=== PATIENT | male | born 1950 | race Caucasian/White ===

== ENCOUNTER 2019-01-14 22:22 | Emergency (ER) | payer OTHER ==
--- OUTSIDE RECORDS SUMMARY | 2019-01-14 22:25 | XMS REPORT | Continuity of Care Document ---
:1950 Author Organization Interface Problems Problem Status Onset Classification Date Comments Source Date Reported Abnormal EKG Active Problem 07/09/2017 Comp Heart Care Syncope, Active Problem 07/09/2017 Comp unspecified Heart syncope type Care Benign essential Active Problem 07/09/2017 Comp hypertension [facility] Medications Medication Details Route Status Patient Ordering Order Source Instructions Provider Date Humalog 0 subcutaneously Active 100 units/mL [place] KwikPen subcutaneously [facility] Fish Oil 1 cap(s) orally Active 1200 mg orally 3 [place] Comp times a day [facility] Super Beta 1 tab(s) orally Active orally once a [place] Comp Prostate day [facility] Centrum 1 tab(s) orally Active Therapeutic [place] Comp Silver Multiple Heart Vitamins with Care Minerals orally once a day ramipril 1 cap(s) orally Active 10 mg orally [place] Comp once a day [facility] Care Humalin not NA Active 70/30 daily [place] Comp defined [facility] Vitamin D3 1 tab(s) orally Active 2000 intl units [place] Comp orally once a Heart day Care Vitamin B12 1 tab(s) sublingually Active 2500 mcg [place] Comp sublingually Heart once a day Care aspirin 1 tab(s) orally Active 81 mg orally [place] Comp once a day Heart Care gabapentin 1 cap(s) orally Active 300 mg orally 3 [place] Comp times a day [facility] Care finasteride 1 tab(s) orally Active 5 mg orally once [place] Comp a day [facility] Allergies, Adverse Reactions, Alerts Substance Category Reaction Severity Reaction Status Date Comments Source type Reported penicillin Adverse Info Not Adverse Active Comp Reaction Available Reaction 7 [facility] Flomax Adverse dizziness Adverse Active Comp Reaction Reaction 7 [facility] Immunizations Immunization Date Given Site Status Last Updated Comments Source Results Order Results Value Reference Date Interpretation Comments Source Name Range Vital Signs Vital Sign Value Date Comments Source Diastolic (mm Hg) 70 05/10/2017 Comp [facility] Systolic (mm Hg) 150 05/10/2017 Comp [facility] Weight 210.8 05/10/2017 Comp [facility] Height 71 05/10/2017 Comp [facility] Encounters Location Location Encounter Encounter Reason Attending ADM DC Status Source Details Type Number For Provider Date Date Visit Procedures Procedure Code Date Perfomer Comments Source
--- OUTSIDE RECORDS SUMMARY | 2019-01-14 22:25 | XMS REPORT | Clinical Summary ---
:1950 Author Organization [facility] Address [address] [place] [address] Care Team Providers Name Role Phone Asked, No Pcp Primary Care Provider Unavailable Allergies Active Allergy Reactions Severity Noted Date Comments Penicillins Rash Low 04/23/2009 Tamsulosin Hcl 10/14/2015 Dizziness Medications Medication Sig Dispensed Refills Start Date End Date Status finasteride (PROSCAR) 5 0 12/14/2016 Active mg tablet gabapentin (NEURONTIN) 0 01/27/2017 Active 300 mg capsule ramipril (ALTACE) 10 MG 0 02/24/2017 Active capsule HUMULIN N KWIKPEN 100 0 01/06/2017 Active unit/mL (3 mL) HUMALOG KWIKPEN 100 0 02/08/2017 Active unit/mL injection pen cyanocobalamin 1000 MCG Take by mouth. 0 Active tablet omega-3 fatty acids 1,250 Take by mouth. 0 Active mg capsule cholecalciferol, vitamin Take by mouth. 0 Active D3, (VITAMIN D3) 2,000 unit tablet multivitamin with iron Take by mouth. 0 Active tablet Active Problems No known active problems Family History Relation Name Status Comments Father Alive Mother Social History Tobacco Use Types Packs/Day Years Used Date Never Smoker Alcohol Use Drinks/Week oz/Week Comments No Sex Assigned at Date Recorded Not on file Job Start Date Occupation Industry Not on file Not on file Not on file Travel History Travel Start Travel End No recent travel history available. Last Filed Vital Signs Not on file Plan of Treatment Health Maintenance Due Date Last Done Comments COLON CANCER SCREENING 1998 SHINGLES VACCINES (#1) 1998 INFLUENZA VACCINE 05/10/2019 PNEUMOCOCCAL POLYSACCHARIDE VACCINE Completed 10/14/2015, 05/06/2011 AGE 65 AND OVER 65+ PNEUMOCOCCAL VACCINE Completed 09/20/2016, 10/14/2015, 05/06/2011 Results Not on fileafter 01/13/2018 Insurance Payer Benefit Plan / Group Subscriber ID Type Phone Address AETNA A[facility]NA [facility] IN[facility]MNITY xxxxxxxxxx Indemnity MEDICARE MEDICARE PART A AND B xxxxxxxxxx Medicare [place], [place] Advance Directives Patient has advance care planning documents on file. For more information, please contact:Jeffrey Mahan[address] [place] [address]
--- OUTSIDE RECORDS SUMMARY | 2019-01-14 22:25 | XMS REPORT ---
:1950 Author Organization eClinical[employer] Care Team Providers Name Role Phone Aurora Jerome Provider Role Unavailable Allergies No Known Allergies Problems Problem Type Condition Code Onset Dates Condition Status Problem Abnormal EKG R94.31 Active Problem Syncope, unspecified syncope type R55 Active Problem Benign essential hypertension I10 Active Medications No Known Medications Results No Known Results Summary Purpose eClinicalWorks Submission
--- OUTSIDE RECORDS SUMMARY | 2019-01-14 22:25 | XMS REPORT ---
:1950 Author Organization [employer] Care Team Providers Name Role Phone Aurora Jerome Provider Role Unavailable Allergies No Known Allergies Problems Problem Type Condition Code Onset Dates Condition Status Problem Benign essential hypertension I10 Active Medications No Known Medications Results No Known Results Summary Purpose eClinicalWorks Submission
--- OUTSIDE RECORDS SUMMARY | 2019-01-14 22:25 | XMS REPORT ---
:1950 Author Organization eClinicalWorks Care Team Providers Name Role Phone Aurora Jerome Provider Role Unavailable Allergies, Adverse Reactions, Alerts Substance Reaction Event Type penicillin Info Not Available Drug Allergy Flomax dizziness Drug Allergy Problems Problem Type Condition Code Onset Dates Condition Status Problem Abnormal EKG R94.31 Active Problem Syncope, unspecified syncope type R55 Active Problem Benign essential hypertension I10 Active Assessment Syncope, unspecified syncope type R55 Active Assessment Abnormal EKG R94.31 Active Assessment Benign essential hypertension I10 Active Medications Medication Code Code Instructions Start End Status Dosage System Date Date Humalog KwikPen [facility] 63179456296 100 units/mL Active 0 subcutaneously Fish Oil [facility] 24335136484 1200 mg orally 3 Active 1 cap(s) times a day Super Beta NDC 0 orally once a Active 1 tab(s) Prostate day Centrum Silver [facility] 32142162159 Therapeutic Active 1 tab(s) Multiple Vitamins with Minerals orally once a day ramipril [facility] 73778416392 10 mg orally once Active 1 cap(s) a day Humalin ND 0 70/30 daily Active not defined Vitamin D3 [facility] 02031107025 2000 intl units Active 1 tab(s) orally once a day Vitamin B12 [facility] 18234954810 2500 mcg Active 1 tab(s) sublingually once a day aspirin [facility] 22152192406 81 mg orally once Active 1 tab(s) a day gabapentin [facility] 94310726672 300 mg orally 3 Active 1 cap(s) times a day finasteride [facility] 10754372138 5 mg orally once Active 1 tab(s) a day Vital Signs Date/Time: May 10, 2017 Blood Pressure Diastolic 70 mm Hg Blood Pressure Systolic 150 mm Hg Weight 210.8 lbs BMI 29.40 Index Height 71 in Results No Known Results Summary Purpose eClinicalWorks Submission
[2019-01-15] MEDS ORDERED: LIDOCAINE 1% MPF 5 ML VIAL ONE (00:37)
--- NOTE | 2019-01-15 00:43 | EDPHYS ---
Physician Documentation [facility] Name: Jean Estevez Age: 68 yrs Sex: Male : 1950 Arrival Date: 01/14/2019 Time: 22:28 Bed 13 Private MD: ED Physician Parish Nath HPI: 01/15 00:35 This 68 yrs old Male presents to ER via Ambulatory with complaints of Milind in gs ear. 00:35 The patient presents with a foreign body sensation, presumably from an insect. The gs complaints affect the right ear. Onset: The symptoms/episode began/occurred today. Associated signs and symptoms: Pertinent negatives: fever, vertigo, vomiting. Severity of symptoms: At their worst the symptoms were moderate in the emergency department the symptoms are unchanged. Historical: - Allergies: 01/14 22:50 Penicillins; jb4 - Home Meds: 22:50 10mg b/p medication [Active]; insulin [Active]; gabapentin oral oral [Active]; jb4 - PMHx: 22:50 Diabetes - IDDM; Hypertension; neuropathy; jb4 - PSHx: 22:50 None; jb4 - Immunization history:: Adult Immunizations up to date. - Social history:: Smoking status: Patient/guardian denies using tobacco, Patient/guardian denies using alcohol. - Ebola Screening: : No symptoms or risks identified at this time. ROS: 01/15 00:35 All other systems are negative. gs Exam: 00:35 Constitutional: The patient appears alert, awake. gs 00:35 ENT: Ear canal(s): foreign body, an insect. Vital Signs: 01/14 22:50 BP 152 / 64; Pulse 83; Resp 16; Temp 98.2(O); Pulse Ox 95% on R/A; Weight 90.72 kg (R); jb4 Height 5 ft. 11 in. (180.34 cm); Pain 0/10; 01/15 00:45 BP 149 / 69; Pulse 82; Resp 16; Pulse Ox 98% on R/A; jb4 01/14 22:50 Body Mass Index 27.89 (90.72 kg, 180.34 cm) jb4 Procedures: 00:35 Foreign Body Removal: an insect, unable to retrieve pt wants to go to ent tomorrow. gs MDM: 01/14 23:40 Patient medically screened. 01/15 00:35 Data reviewed: vital signs, nurses notes. Administered Medications: 00:45 Not Given (Patient Refused; at 0030): Lidocaine (1 %) 5 mg Infiltration once; Place 2 fc ml in pts ear. Disposition: 01/15/19 00:42 Discharged to Home. Impression: Foreign body in right ear. - Condition is Stable. - Discharge Instructions: Insect Bite, [id number]. - Prescriptions for Ciprodex 0.3- 0.1 % Otic Drops, Suspension - instill 4 drop by OTIC route every 12 hours for 7 days , for ears ONLY; 1 Container. - Medication Reconciliation Form, Thank You Letter, Antibiotic Education, Prescription Opioid Use form. - Follow up: Ruth Ortiz MD; When: 2 - 3 days; Reason: Re-evaluation by your physician. Signatures: Kym Grijalva RN RN Bret Contreras RN RN jb4 Parish Nath MD MD Corrections: (The following items were deleted from the chart) 00:54 00:42 01/15/2019 00:42 Discharged to Home. Impression: Foreign body in right ear. jb4 Condition is Stable. Forms are Medication Reconciliation Form, Thank You Letter, Antibiotic Education, Prescription Opioid Use. Follow up: Ruth Ortiz; When: 2 - 3 days; Reason: Re-evaluation by your physician.
--- NOTE | 2019-01-15 00:43 | ER ---
Nurse's Notes [facility] Name: Jean Estevez Age: 68 yrs Sex: Male : 1950 Arrival Date: 01/14/2019 Time: 22:28 Bed 13 Private MD: Diagnosis: Foreign body in right ear Presentation: 01/14 22:50 Presenting complaint: Patient states: I was fishing and a bug flew into my ear, at home jb4 we poured water, peroxide, and swimmers ear medication in to try and flush it out, we were unsuccessful. Went to [facility], were told that they did not have the tools to remove it, but that the bug was . 22:50 Transition of care: patient was not received from another setting of care. Onset of jb4 symptoms was January 14, 2019. Risk Assessment: Do you want to hurt yourself or someone else? Patient reports no desire to harm self or others. Initial Sepsis Screen: Does the patient meet any 2 criteria? No. Patient's initial sepsis screen is negative. Does the patient have a suspected source of infection? No. Patient's initial sepsis screen is negative. Care prior to arrival: None. 22:50 Method Of Arrival: Ambulatory jb4 22:50 Acuity: ALEYDA 5 jb4 Historical: - Allergies: 22:50 Penicillins; jb4 - Home Meds: 22:50 10mg b/p medication [Active]; insulin [Active]; gabapentin oral oral [Active]; jb4 - PMHx: 22:50 Diabetes - IDDM; Hypertension; neuropathy; jb4 - PSHx: 22:50 None; jb4 - Immunization history:: Adult Immunizations up to date. - Social history:: Smoking status: Patient/guardian denies using tobacco, Patient/guardian denies using alcohol. - Ebola Screening: : No symptoms or risks identified at this time. Screenin:50 Abuse screen: Denies threats or abuse. Nutritional screening: No deficits noted. jb4 Tuberculosis screening: No symptoms or risk factors identified. Fall Risk None identified. Assessment: 22:50 General: Appears in no apparent distress. comfortable, Behavior is calm, cooperative, jb4 appropriate for age. Pain: Denies pain. Neuro: Level of Consciousness is awake, alert, obeys commands, Oriented to person, place, time, situation. Cardiovascular: Patient's skin is warm and dry. Respiratory: Airway is patent Respiratory effort is even, unlabored, Respiratory pattern is regular, symmetrical. GI: No signs and/or symptoms were reported involving the gastrointestinal system. : No signs and/or symptoms were reported regarding the genitourinary system. EENT: Ear canal w/ foreign body noted from right ear. Derm: Skin is intact, Skin is pink, warm \T\ dry. Musculoskeletal: Circulation, motion, and sensation intact. 23:40 Reassessment: Patient appears in no apparent distress at this time. Patient and/or jb4 family updated on plan of care and expected duration. Pain level reassessed. Patient is alert, oriented x 3, equal unlabored respirations, skin warm/dry/pink. Attempted to irrigate foreign body from patients ear. Attempt unsuccessful, provider notified. 01/15 00:30 Reassessment: After discussing tx with , he requested that we place 2 ml of lidocaine fc in pts ear. Then went to place this in pts ear and pt refused. States that he would rather go see ENT in am. Dr notified. 00:51 Reassessment: Patient appears in no apparent distress at this time. Patient is alert, jb4 oriented x 3, equal unlabored respirations, skin warm/dry/pink. Pt left ED with . Vital Signs: 01/14 22:50 BP 152 / 64; Pulse 83; Resp 16; Temp 98.2(O); Pulse Ox 95% on R/A; Weight 90.72 kg (R); jb4 Height 5 ft. 11 in. (180.34 cm); Pain 0/10; 01/15 00:45 BP 149 / 69; Pulse 82; Resp 16; Pulse Ox 98% on R/A; jb4 01/14 22:50 Body Mass Index 27.89 (90.72 kg, 180.34 cm) jb4 ED Course: 01/14 22:28 Patient arrived in ED. es 22:46 Parish Nath MD is Attending Physician. gs 22:47 Bret Contreras, IVA is Primary Nurse. jb4 22:50 Arm band placed on left wrist. jb4 22:50 Patient has correct armband on for positive identification. Bed in low position. Call jb4 light in reach. Side rails up X 1. Pulse ox on. NIBP on. 23:00 Triage completed. jb4 01/15 00:42 Ruth Ortiz MD is Referral Physician. 00:45 No provider procedures requiring assistance completed. Patient did not have IV access jb4 during this emergency room visit. Administered Medications: 00:45 Not Given (Patient Refused; at 0030): Lidocaine (1 %) 5 mg Infiltration once; Place 2 fc ml in pts ear. Outcome: 00:42 Discharge ordered by . 00:54 Discharged to home ambulatory, with family. jb4 00:54 Condition: stable 00:54 Discharge instructions given to patient, family, Instructed on discharge instructions, follow up and referral plans. medication usage, Demonstrated understanding of instructions, follow-up care, medications, Prescriptions given X 1. 00:54 Patient left the ED. jb4 Signatures: Blanche Arthur Felicia, RN RN Bret Contreras RN RN jb4 Parish Nath MD MD
== END 2019-01-15 00:54 | disposition home or self-care (01) ==
LOC: ER 22:22
PROC: 09C3XZZ Extirpation of Matter from Right External Auditory Canal, External Approach (ICD-10-PCS; principal; 2019-01-15)
DX: T16.1XXA Foreign body in right ear, initial encounter (principal); I10 Essential (primary) hypertension; E11.9 Type 2 diabetes mellitus without complications; Z88.0 Allergy status to penicillin
CPT/HCPCS: 99283